=== PATIENT | female | born 1980 | race Caucasian/White ===

== ENCOUNTER → 2016-05-03 | Outpatient (CLI) | payer MEDICAID ==
--- NOTE | 2016-05-03 12:35 | ECHOF ---
Referral Reason:R55 Syncope MEASUREMENTS -------- HEIGHT: 172.7 cm WEIGHT: 94.3 kg BP: RVIDd: 2.9 cm (< 3.3) IVSd: 1.0 cm (0.6 - 1.1) LVIDd: 4.5 cm (3.9 - 5.3) LVPWd: 0.9 cm (0.6 - 1.1) IVSs: 1.0 cm LVIDs: 3.4 cm LVPWs: 1.2 cm LA Diam: 3.3 cm (2.7 - 3.8) LAESV Index (A-L): 19.76 ml/m Ao Diam: 3.2 cm (2.0 - 3.7) AV Cusp: 1.6 cm (1.5 - 2.6) LA Diam: 3.3 cm (2.7 - 3.8) MV EXCURSION: 17.310 mm (> 18.000) MV EF SLOPE: 77 mm/s (70 - 150) EPSS: 0.5 cm MV E Raheem: 0.65 m/s MV DecT: 230 ms MV A Raheem: 0.97 m/s MV E/A Ratio: 0.67 RAP: 5.00 mmHg RVSP: 13.08 mmHg FINDINGS -------- Sinus rhythm. This was a technically excellent study. LV size, wall thickness and systolic function are normal, with an EF greater than 55%. The right ventricle is normal in size. The left atrial size is normal. The right atrial size is normal. There is mild aortic valve sclerosis. There is no evidence of aortic regurgitation. The mitral valve leaflets are mildly thickened. Mild mitral regurgitation is present. Mild tricuspid regurgitation present. There is no evidence of pulmonary hypertension. The right ventricular systolic pressure, as measured by Doppler, is 13.08mmHg. There is no pulmonic regurgitation present. The aortic root size is normal. There is no pericardial effusion. CONCLUSIONS -------- 1. LV size, wall thickness and systolic function are normal, with an EF greater than 55%. 2. There is mild aortic valve sclerosis. 3. The mitral valve leaflets are mildly thickened. 4. Mild mitral regurgitation is present. 5. The right ventricular systolic pressure, as measured by Doppler, is 13.08mmHg. [place]: oLu Tru[place]
== END | disposition home or self-care (01) ==
LOC: RADECHMAIN 11:18
PROVIDERS: ATTEND Family Medicine
DX: I08.0 Rheumatic disorders of both mitral and aortic valves (principal)
CPT/HCPCS: 93306

== ENCOUNTER → 2016-05-14 | Outpatient (CLI) | payer MEDICAID ==
[2016-05-14 08:57] LABS: CH 29.5; CHCM 32.8; HCT 39.1 % (34.0-46.0); HDW 2.32; MCHC 33.3 g/dL (31.0-37.0); MCV 90.3 fL (80.0-100.0); Mean Platelet Volume 6.6; RBC 4.33 m/uL (3.80-5.40); RDW 12.5 % (11.5-15.5); WBC 6.7 k/uL (3.8-10.6)
[2016-05-14 09:34] LABS: ALT 46 U/L (9-52); AST 20 U/L (14-36); Alkaline Phosphatase 59 U/L (38-126); Anion Gap 9 mmol/L; Blood Urea Nitrogen 12 mg/dL (7-17); Calcium 9.1 mg/dL (8.4-10.2); Carbon Dioxide 26 mmol/L (22-30); Chloride 106 mmol/L (98-107); Cholesterol 142 mg/dL (<200); Glucose 95 mg/dL (74-99); HDL Cholesterol 65 mg/dL (40-60); Non-African American GFR(MDRD) >60 (>60 ml/min/1.73 sqM); Potassium 4.4 mmol/L (3.5-5.1); Sodium 141 mmol/L (137-145); Total Bilirubin 0.9 mg/dL (0.2-1.3); Total Protein 7.2 g/dL (6.3-8.2); Triglycerides 48 mg/dL (<150)
== END | disposition home or self-care (01) ==
LOC: LABWHC1 08:31
PROVIDERS: ATTEND Family Medicine
DX: R55 Syncope and collapse (principal)
CPT/HCPCS: 36415; 80053; 80061; 84439; 84443; 85027

== ENCOUNTER → 2016-09-25 | Outpatient (CLI) | payer MEDICAID ==
--- NOTE | 2016-09-26 08:24 | MM ---
Reason for exam: clinical finding. Last mammogram was performed 1 year ago. History: Took hormonal contraceptives for 16 years beginning at age 17. Indicated problem(s): pain in the left breast. Physical Findings: Nurse Summary: 0.5 x 2cm nodule in the left breast at 2 o'clock (nurse cm, mm). MG 3D Diag Mammo W/Cad RAJNI Bilateral CC and MLO view(s) were taken. Prior study comparison: October 03, 2015, left breast MG 3d diag mammo w/cad LT. September 20, 2015, left breast US breast LT. The breast tissue is heterogeneously dense. This may lower the sensitivity of mammography. No significant new findings when compared with previous films. These results were verbally communicated with the patient and result sheet given to the patient on 09/25/16. ASSESSMENT: Benign, BI-RAD 2 RECOMMENDATION: Routine screening mammogram of both breasts in 2 years. Manage on a clinical basis with regard to left palpable.
--- NOTE | 2016-09-26 08:25 | USB ---
Reason for exam: clinical finding. History: Took hormonal contraceptives for 16 years beginning at age 17. Indicated problem(s): pain in the left breast. US Breast BILAT Right breast ultrasound includes all four quadrants, the retroareolar region and axilla. Finding demonstrates a duct at 8 o'clock. Left breast ultrasound includes all four quadrants, the retroareolar region and axilla. Finding demonstrates no cystic or solid lesion seen. These results were verbally communicated with the patient and result sheet given to the patient on 09/25/16. ASSESSMENT: Benign, BI-RAD 2 RECOMMENDATION: Routine screening mammogram of both breasts in 2 months.
== END | disposition home or self-care (01) ==
LOC: RADMAMWWP 08:43
PROVIDERS: ATTEND Surgery
DX: N64.4 Mastodynia (principal)
CPT/HCPCS: 76641; G0204; G0279

== ENCOUNTER → 2022-01-22 | Outpatient (CLI) | payer BC ==
--- NOTE | 2022-01-23 20:32 | MM ---
Reason for Exam: Screening (asymptomatic). Last mammogram was performed 5 year(s) and 4 month(s) ago. Patient History: Menarche at age 14. First Full-Term at age 29. Patient has history of breast feeding. Hormonal Contraceptives for 16 years from age 17 until age 35. Last menstrual period: 01/08/2022 Risk Values: Yessy 5 year model risk: 0.6%. NCI Lifetime model risk: 11.1%. Prior Study Comparison: 10/03/2015 Left Diagnostic Mammogram, [facility]. 09/25/2016 Bilateral Diagnostic Mammogram, [facility]. Tissue Density: There are scattered fibroglandular densities. Findings: Analyzed By CAD. Chronic nodularity right upper outer quadrant. There is no suspicious group of microcalcifications or new suspicious mass in either breast. Overall Assessment: Benign, BI-RAD 2 Management: Screening Mammogram of both breasts in 1 year. 1. Patient should continue monthly self breast exams. 2. A clinical breast exam by your physician is recommended on an annual basis. 3. This exam should not preclude additional follow-up of suspicious palpable abnormalities. Electronically signed and approved by: Jesus Lynn M.D. Radiologist
== END | disposition home or self-care (01) ==
LOC: RADMAMWWP 15:51
PROVIDERS: ATTEND Obstetrics & Gynecology
DX: Z12.31 Encounter for screening mammogram for malignant neoplasm of breast (principal)
CPT/HCPCS: 77063; 77067

== ENCOUNTER → 2022-04-26 | Outpatient (CLI) | payer BC ==
[2022-04-26 15:31] LABS: HCT 40.4 % (37.2-46.3); HGB 12.9 g/dL (12.0-15.0); MCH 29.1 pg (27.0-32.0); MCHC 31.9 g/dL (32.0-37.0); Mean Platelet Volume 9.6 fL (9.5-12.2); NRBC Per 100 WBC 0 /100 WBCS (0.0-0.0); Platelet Count 279 X 10*3/uL (140-440); RBC 4.44 X 10*6/uL (4.10-5.20); RDW 12.3 % (11.5-14.5); WBC 8.64 X 10*3/uL (4.50-10.00)
== END | disposition home or self-care (01) ==
LOC: LABPAT 10:00
PROVIDERS: ATTEND Obstetrics & Gynecology
DX: Z01.812 Encounter for preprocedural laboratory examination (principal)
CPT/HCPCS: 85027

== ENCOUNTER 2022-05-04 05:42 | Day surgery (SDC) | payer BC ==
[2022-05-01 10:56] VITALS: BMI 32.6
--- NOTE | 2022-05-03 07:35 | P.HPOB ---
History of Present Illness H&P Date: 05/03/22 Chief Complaint: Requesting permanent sterilization This patient is a pleasant 41-year-old 2 para 2 female who presented to my office requesting laparoscopic tubal cauterization for permanent sterilization. Patient is not currently in a relationship however does not want to risk in the future. She's tried the pill before but forgets to take, does not really want any other hormones. She does not want an IUD at this time. This is the method she has chosen for control. Past Medical History Past Medical History: No Reported History History of Any Multi-Drug Resistant Organisms: None Reported Past Surgical History: Orthopedic Surgery Additional Past Surgical History / Comment(s): CERVICAL FUSION. DENTAL PROCEDURES WITH ANESTHESIA Past Anesthesia/Blood Transfusion Reactions: Family Hisory of Malignant Hyperthermia Additional Past Anesthesia/Blood Transfusion Reaction / Comment(s): SISTER Smoking Status: Former smoker Past Alcohol Use History: None Reported Past Drug Use History: None Reported - Past Family History Mother Family Medical History: No Reported History Sister(s) Additional Family Medical History / Comment(s): HX MALIGNANT HYPERTHERMIA Medications and Allergies Home Medications Medication Instructions Recorded Confirmed Type Cholecalciferol [Vitamin D3 (25 50 mcg PO DAILY 05/01/22 05/01/22 History Mcg = 1000 Iu)] Citalopram Hydrobromide 20 mg PO DAILY 05/01/22 05/01/22 History [Citalopram HBr] Multivit with Calcium,Iron,Min 1 each PO DAILY 05/01/22 05/01/22 History [Women's Multivitamin] Allergies Allergy/AdvReac Type Severity Reaction Status Date / Time No Known Allergies Allergy Verified 05/01/22 10:50 Exam - OBG Physical Exam Abdomen: bowel sounds normal, no diffuse tenderness, no bruit present, no guarding noted, no hepatomegaly, no splenomegaly, no mass Vulva: both: normal Vagina: normal moisture, no discharge Cervix: no lesion, no discharge Uterus: normal size, normal contour Adnexa: both: normal Assessment and Plan Assessment: This is a pleasant 41-year-old 2 para 2 female who presents requesting permanent sterilization. Plan is laparoscopic bilateral fallopian tube cauterization. I've had a long discussion with Yaritza and she understands that this is considered a permanent procedure, however there is a failure rate of less than 5 per thousand procedures done. She understands if she did become she has a 50% chance of a tubal or an ectopic . Patient understands also that laparoscopic surgery inherently has risks including risks of infection, bleeding, possible injury bowel, bladder, vessels, and/or other organs that would require further surgery. Patient understands this is an elective procedure and alternatives exist. All the patient's questions are answered and a written consent is obtained. (1) Family planning Status: Acute Code(s): Z30.09 - ENCOUNTER FOR OTH GENERAL CNSL AND ADVICE ON CONTRACEPTION SNOMED Code(s): 004948075
[~2022-05-04 05:42] MED LIST: Pre Op ABX Message 1 EACH MISC MISCELLANE ONE
[2022-05-04] MEDS ORDERED: SCOPOLAMINE 1 MG/72 HR PATCH TRANSDERM ONE (05:53)
[2022-05-04] MEDS ORDERED: MIDAZOLAM 2 MG/2 ML VIAL IV PRN (05:53)
[2022-05-04] MEDS ORDERED: ONDANSETRON 4 MG/2 ML VIAL IVP ONE (05:53)
[2022-05-04] MEDS ORDERED: LACTATED RINGERS 1,000 ML IV SCH (05:53)
[2022-05-04] MEDS ORDERED: DEXAMETHASONE SOD PHOSPHATE 4 MG/ML 1 ML VIAL IV ONE (05:53)
[2022-05-04] MEDS ORDERED: GLYCOPYRROLATE 0.2 MG/ML 2 ML VIAL ONE (06:55)
[2022-05-04] MEDS ORDERED: KETOROLAC 15 MG/ML 1 ML VIAL ONE (06:55)
[2022-05-04] MEDS ORDERED: ROCURONIUM 10 MG/ML (5 ML VIAL) IV ONE (06:55)
[2022-05-04] MEDS ORDERED: MIDAZOLAM 2 MG/2 ML VIAL ONE (06:55)
[2022-05-04] MEDS ORDERED: fentaNYL (PF) 50 MCG/ML 2 ML AMP ONE (06:55)
[2022-05-04] MEDS ORDERED: NEOSTIGMINE 1 MG/ML 10 ML VIAL ONE (06:55)
[2022-05-04] MEDS ORDERED: PROPOFOL 10 MG/ML 20 ML VIAL IV ONE (06:55)
[2022-05-04] MEDS ORDERED: HYDROmorphone 0.5 MG/0.5 ML SYRINGE IVP PRN (07:00)
[2022-05-04] MEDS ORDERED: BUPIVACAINE (PF) 0.5% 30 ML VIAL SQ ONE (07:20)
[2022-05-04 07:47] VITALS: RESP 16; TEMP 97
--- NOTE | 2022-05-04 07:48 | P.OP ---
Date of Procedure: 05/04/22 Preoperative Diagnosis: Multiparity desires permanent sterilization Postoperative Diagnosis: Same Procedure(s) Performed: Laparoscopic bilateral fallopian tube cauterization Anesthesia: SIMONA Surgeon: Frantz Willis Estimated Blood Loss (ml): 10 Urine output (ml): 30 Pathology: none sent Condition: stable Disposition: PACU Indications for Procedure: Please see dictated H&P for intimate details of this patient's admission. In brief summary this is a pleasant 41-year-old 2 para 2 female who presented to my office requesting permanent sterilization. Patient I discussed options for control and this is the method she has chosen. She und erstands is considered permanent however is a failure rate of less than 5 per thousand procedures done. She understands if she did become she has a 50% chance of tubal or an ectopic . Patient also understands surgery itself and apparently has risks including risks of infection, bleeding, possible injury bowel, bladder, vessels, and/or other organs. All the patient's questions are answered and a written consent is obtained. Operative Findings: This patient is a normal appearing pelvis Description of Procedure: This patient is taken to the operating room where she is laid in the supine position. She subsequently undergoes general endotracheal anesthesia without incident. After the appropriate timeout, patient has a vaginal perineal abdominal prep and drape. First good on below placed a speculum in the vagina grabbed the anterior lip of the cervix with an Allis clamp. [place] cannula is gently placed into the endocervix and attached to the Allis clamp. The bladder is then drained for 30 mL of clear urine and a red Adler is left in place. Speculum is removed. I changed gloves and go up above. I make a 10 mm infraumbilical incision. Through this incision a 10 mm bladeless optical trochar is placed. With peritoneal placement confirmed, pneumoperitoneum is created to 12 mm of carbon dioxide gas. I then make a 5 mm incision approximate 2 finger breaths above the symphysis pubis. A 5 mm bladeless trochars placed under direct visualization. Using a blunt probe I manipulate the uterus tubes and ovaries all appear normal. Using bipolar cautery then grasped the right fallopian tube approximately 4 cm from its cornual insertion and cauterize a 2 cm segment of the tube. Complete cauterization is demarcated by the volt meter. Similar technique is done on the left side with similar results. With this completed, final inspection is done of the pelvis and upper abdomen all appears normal. The lower trochars removed under direct visualization good hemostasis is noted. Pneumoperitoneum was reduced and then the incisions are closed using a 4-0 Vicryl. Steri-Strips and sterile dressing applied. Half percent Marcaine is infiltrated for postoperative pain control. I then go down below remove the acorn cannula Allis clamp and catheter. All counts are correct 3. There are no complications. Patient is awakened from anesthesia and taken to recovery room satisfactory condition.
[2022-05-04] MEDS ORDERED: HYDROmorphone 0.5 MG/0.5 ML SYRINGE IVP ONE ×2 (08:50→09:14)
[2022-05-04 08:56] VITALS: BP 111/73; PULSE 59
== END 2022-05-04 09:11 | disposition home or self-care (01) ==
LOC: OR 05:42
PROVIDERS: ATTEND Obstetrics & Gynecology
DX: Z30.2 Encounter for sterilization (principal); Z64.1 Problems related to multiparity; Z98.0 Intestinal bypass and anastomosis status; Z79.1 Long term (current) use of non-steroidal anti-inflammatories (NSAID); Z79.2 Long term (current) use of antibiotics; Z98.890 Other specified postprocedural states; Z84.89 Family history of other specified conditions; Z87.891 Personal history of nicotine dependence; Z79.899 Other long term (current) drug therapy; Z79.891 Long term (current) use of opiate analgesic
CPT/HCPCS: 58670; 81025; J2250; J1100; J2710; J2405; J3010; J1885; J2704; J1170

== ENCOUNTER → 2023-03-27 | Outpatient (CLI) | payer BC ==
--- NOTE | 2023-03-28 08:21 | MM ---
Reason for Exam: Screening (asymptomatic). Last mammogram was performed 1 year(s) and 2 month(s) ago. Patient History: Menarche at age 14. First Full-Term at age 29. Patient has history of breast feeding. Hormonal Contraceptives for 16 years from age 17 until age 35. Risk Values: Yessy 5 year model risk: 0.7%. NCI Lifetime model risk: 11.0%. Prior Study Comparison: 10/03/2015 Left Diagnostic Mammogram, [facility]. 09/25/2016 Bilateral Diagnostic Mammogram, [facility]. 01/22/2022 Bilateral MG 3D screening mammo w/cad, [facility]. Tissue Density: The breast tissue is heterogeneously dense. This may lower the sensitivity of mammography. Findings: Analyzed By CAD. There is no suspicious group of microcalcifications or new suspicious mass in either breast. Overall Assessment: Benign, BI-RAD 2 Management: Screening Mammogram of both breasts in 1 year. . Patient should continue monthly self-breast exams. A clinical breast exam by your physician is recommended on an annual basis. This exam should not preclude additional follow-up of suspicious palpable abnormalities. Note on Yessy scores and lifetime risk: 1. A Yessy score greater than 3% is considered moderate risk. If this is the case, consider specialist referral to assess eligibility for a risk reducing agent. 2. If overall lifetime risk for the development of breast cancer is 20% or higher, the patient may qualify for future screening with alternating mammogram and breast MRI. Electronically signed and approved by: Moe Guzman M.D. Radiologis
== END | disposition home or self-care (01) ==
LOC: RADMAMWWP 12:45
PROVIDERS: ATTEND Obstetrics & Gynecology
DX: Z12.31 Encounter for screening mammogram for malignant neoplasm of breast (principal)
CPT/HCPCS: 77063; 77067